=== PATIENT | female | born 1945 | race Caucasian/White ===

== ENCOUNTER 2020-02-06 05:36 | Day surgery (SDC) | payer MEDICARE, BC ==
[2020-01-30 15:32] LABS: EOSINOPHILS # (AUTO) 0.1 X10'3 (0-0.9); LYMPHOCYTES # (AUTO) 2.3 X10'3 (1.1-4.8); MONOCYTES # (AUTO) 0.8 X10'3 (0-0.9); MONOCYTES % (AUTO) 9.1 % (2-12); PRE OP HEMOGLOBIN 14.7 g/dL (12.0-16.0); RED BLOOD COUNT 4.95 X10'6 (4.20-5.60)
[2020-01-30 15:33] LABS: BASOPHILS % (AUTO) 0.4 % (0-1); LYMPHOCYTES % (AUTO) 25.3 % (21-51); MEAN CORPUSCULAR HEMOGLOBIN 29.8 PG (27.0-31.0); MEAN CORPUSCULAR HGB CONC 33.5 g/dL (33.0-36.5); MEAN CORPUSCULAR VOLUME 88.8 FL (78-98); MEAN PLATELET VOLUME 9.3 FL (7.4-10.4); NEUTROPHILS # (AUTO) 5.9 X10'3 (1.8-7.7); NEUTROPHILS % (AUTO) 64.2 % (42-75); PRE OP PLATELET COUNT 224 X10'3 (140-440); RED CELL DISTRIBUTION WIDTH 13.8 % (11.5-14.5)
[2020-01-30 15:48] LABS: ALBUMIN 3.8 G/DL (3.4-5.0); ALBUMIN/GLOBULIN RATIO 0.9 (1.1-1.5); ALKALINE PHOSPHATASE 95 IU/L (46-116); BLOOD UREA NITROGEN 18 MG/DL (7-18); BUN/CREATININE RATIO 20.5 (6.6-38.0); CALCIUM 9.5 MG/DL (8.5-10.1); CHLORIDE 106 MMOL/L (99-107); CREATININE 0.88 MG/DL (0.40-0.90); PRE OP ALT 26 U/L (30-65); PRE OP ANION GAP 10 (8-16); PRE OP AST 25 U/L (10-37); PRE OP BILIRUB, TOTAL 0.5 MG/DL (0.0-1.0); PRE OP GLUCOSE 80 MG/DL (70-104); PRE OP POTASSIUM 3.7 MMOL/L (3.4-5.1); PRE OP SODIUM 145 MMOL/L (135-145); eGFR 63 ML/MIN
[~2020-02-06] VITALS: Ht 162.6 cm; Wt 90.0 kg
[~2020-02-06 05:36] MED LIST: DOCUMENT DATE & TIME OF BETA-BLOCKER PO ONE; famotidine 20mg tablet PO ONE; ringers solution, lacted 1,000 ML IV SCH; vancomycin 1,500 MG in NS 300ml IV soln IV ONE
[2020-02-06 05:45] VITALS: BP 109/54
[2020-02-06] MEDS ORDERED: ASPI81TA52 PO (06:03)
[2020-02-06] MEDS ORDERED: BUPR300T53 PO (06:03)
[2020-02-06] MEDS ORDERED: HCTZ25T PO (06:03)
[2020-02-06] MEDS ORDERED: LEVO88TA2 PO (06:03)
[2020-02-06] MEDS ORDERED: ATOR10TA87 PO (06:03)
[2020-02-06] MEDS ORDERED: QUIN20TA18 PO (06:03)
[2020-02-06] MEDS ORDERED: ATEN25TA PO (06:03)
[2020-02-06] MEDS ORDERED: LIDOcaine 1% (10mg/ml) 2ml vial ONE (06:10)
[2020-02-06] MEDS ORDERED: BUPIVAcaine/PF 2.5mg/ml (0.25%) 10ml vial ONE (06:32)
[2020-02-06] MEDS ORDERED: midazolam 2 mg/2 ml injection ONE (07:54)
[2020-02-06] MEDS ORDERED: fentaNYL/PF 50MCG/1 ML 2ML syringe ONE (07:54)
[2020-02-06] MEDS ORDERED: LIDOcaine 0.5% (5mg/ml) 50ml vial ONE (07:56)
[2020-02-06] MEDS ORDERED: ringers solution, lacted 1,000 ML IV SCH (08:03)
[2020-02-06] MEDS ORDERED: morphine 2 MG/ML inj. syringe IV PRN (08:05)
[2020-02-06] MEDS ORDERED: morphine 4 MG/ML inj SYRINge IV PRN (08:05)
[2020-02-06] MEDS ORDERED: meperidine/PF 25mg/ml syringe IV PRN ×3 (08:05)
[2020-02-06] MEDS ORDERED: ondansetron/PF 4mg/2ml inj IV PRN (08:05)
[2020-02-06] MEDS ORDERED: proCHLORperazine 10 MG/2 ml inj IV PRN (08:05)
[2020-02-06] MEDS ORDERED: propofol inj 20 ML IV ONE (09:01)
[2020-02-06 09:03] VITALS: BP 99/37
--- NOTE | 2020-02-06 09:03 | NUR ---
Received from OR via [facility], accompanied by Anesthesiologist DR CAI and report given by Anesthesiologist. PT AWAKE, DENIES PAIN, RIGHT HAND W/BIAS DRSG COVERING INCISION/DRSG CDI, FINGERS PWD, WHIZZER HAND 1-2 SECONDS. Addendum: 02/06/20 at 0915 by Millie Dickson RN Amended: Links added.
[2020-02-06 09:13] VITALS: BP 110/57
[2020-02-06 09:23] VITALS: BP 115/57
[2020-02-06 09:33] VITALS: BP 121/63
--- NOTE | 2020-02-06 09:43 | NUR ---
D/C INSTRUCTIONS GIVEN AND GONE OVER W/PT WHO VERBALIZED UNDERSTANDING, PT D/CD TO HOME VIA W/C TO PRIVATE VEHICLE W/O INCIDENT. Addendum: 02/06/20 at 0956 by Millie Dickson RN Amended: Links added.
== END 2020-02-06 09:43 | disposition home or self-care (01) ==
LOC: PAS 05:36
PROVIDERS: ATTEND Orthopaedic Surgery Hand Surgery
DX: G56.01 Carpal tunnel syndrome, right upper limb (principal); E03.9 Hypothyroidism, unspecified; I10 Essential (primary) hypertension; E78.00 Pure hypercholesterolemia, unspecified; F41.9 Anxiety disorder, unspecified; M19.90 Unspecified osteoarthritis, unspecified site; Z88.5 Allergy status to narcotic agent; Z88.0 Allergy status to penicillin; Z79.82 Long term (current) use of aspirin; Z79.899 Other long term (current) drug therapy; Z96.643 Presence of artificial hip joint, bilateral; Z87.891 Personal history of nicotine dependence; Z96.651 Presence of right artificial knee joint; Z98.890 Other specified postprocedural states; Z72.89 Other problems related to lifestyle; Z90.710 Acquired absence of both cervix and uterus
CPT/HCPCS: 36415; 64721; 80053; 82948; 85025; J2001; J2250; J2704; J3010; J3370; J3490; J7040; U0003; A4215; J7120

== ENCOUNTER 2021-01-24 07:46 | Day surgery (SDC) | payer MEDICARE, BC ==
[~2021-01-24] VITALS: Ht 162.6 cm; Wt 86.2 kg
[2021-01-24] VITALS (7 sets, daily range): BP systolic 108–125; BP diastolic 49–73
[~2021-01-24 07:46] MED LIST changes: +ASPI81TA52 PO; +ATEN25TA PO; +ATOR10TA87 PO; +BUPR300T53 PO; -DOCUMENT DATE & TIME OF BETA-BLOCKER PO ONE; +HYDR25TA5 PO; +LEVO88TA2 PO; +QUIN20TA18 PO; -famotidine 20mg tablet PO ONE; -ringers solution, lacted 1,000 ML IV SCH; -vancomycin 1,500 MG in NS 300ml IV soln IV ONE
[2021-01-24] MEDS ORDERED: CLINDAMYCIN/D5W 900mg/50ml 50 ML IV ONE (08:20)
[2021-01-24 08:44] LABS: BASOPHILS % (AUTO) 0.3 % (0-1); EOSINOPHILS # (AUTO) 0.1 X10'3 (0-0.9); HEMATOCRIT 40.6 % (35.0-45.0); HEMOGLOBIN 13.4 g/dl (12.0-16.0); LYMPHOCYTES # (AUTO) 1.5 X10'3 (1.1-4.8); LYMPHOCYTES % (AUTO) 24.1 % (21-51); MEAN CORPUSCULAR HEMOGLOBIN 30.9 PG (27.0-31.0); MEAN CORPUSCULAR HGB CONC 33.1 g/dL (33.0-36.5); MEAN CORPUSCULAR VOLUME 93.3 FL (78-98); MEAN PLATELET VOLUME 8.9 FL (7.4-10.4); MONOCYTES # (AUTO) 0.5 X10'3 (0-0.9); MONOCYTES % (AUTO) 8.2 % (2-12); NEUTROPHILS % (AUTO) 66.4 % (42-75); PLATELET COUNT 195 X10'3 (140-440); RED BLOOD COUNT 4.35 X10'6 (4.20-5.60); RED CELL DISTRIBUTION WIDTH 13.5 % (11.5-14.5); WHITE BLOOD COUNT 6.1 X10'3 (4.5-11.0)
[2021-01-24] MEDS ORDERED: midazolam 1 mg/ML 2ml injection ONE ×4 (08:53→09:53)
[2021-01-24] MEDS ORDERED: LIDOCAINE 2% w/EPI 1:100:000 30mL injection MDV**cath lab 1 only ONE (08:53)
[2021-01-24] MEDS ORDERED: fentaNYL/PF 50MCG/1 ML 2ML syringe ONE ×3 (08:53→09:53)
[2021-01-24] MEDS ORDERED: clindamycin phosphate 150mg/ml inj. ONE (08:53)
[2021-01-24 09:16] LABS: ALBUMIN 3.7 G/DL (3.4-5.0); BLOOD UREA NITROGEN 15 MG/DL (7-18); BUN/CREATININE RATIO 18.8 (6.6-38.0); CALCIUM 9.2 MG/DL (8.5-10.1); CHLORIDE 106 MMOL/L (99-107); GLUCOSE 93 MG/DL (70-104); MAGNESIUM 2.3 MG/DL (1.5-2.4); POTASSIUM 3.6 MMOL/L (3.5-5.1); TOTAL CARBON DIOXIDE 26.9 MMOL/L (24-32); eGFR 70 ML/MIN
[2021-01-24 09:33] LABS: ANION GAP 9 (8-16); SODIUM 142 MMOL/L (135-145)
[2021-01-24] MEDS ORDERED: LIDOcaine 1% (10mg/ml)w/preservative injection 20ml MDV ONE (09:53)
[2021-01-24] MEDS ORDERED: iohexol 350 MG/ML 50ML vial IV ONE (09:54)
[2021-01-24] MEDS ORDERED: nitroGLYCERIN-Tridil 50MG/D5W 250 ML IV ONE (09:54)
[2021-01-24] MEDS ORDERED: iohexol 350MG/ML 100ml bottle IV ONE (09:54)
--- NOTE | 2021-01-24 10:45 | NUR ---
Pt in room, NS running as ordered. Pt ordered antibiotics administered while in [employer] laboratory [employer], during procedure. Pt returned with vancomycin continuing to run. Administered as ordered. Will continue to monitor.
[2021-01-24] MEDS ORDERED: ketorolac tromethamine 15mg/ml inj. IV ONE (11:15)
[2021-01-24] MEDS ORDERED: normal saline 1000ml 1,000 ML IV SCH (11:15)
== END 2021-01-24 13:10 | disposition home or self-care (01) ==
LOC: SSTAY O 07:46
PROVIDERS: ATTEND Internal Medicine Cardiovascular Disease
DX: I49.5 Sick sinus syndrome (principal); Z45.09 Encounter for adjustment and management of other cardiac device; I10 Essential (primary) hypertension; E78.5 Hyperlipidemia, unspecified; E03.9 Hypothyroidism, unspecified; F32.9 Major depressive disorder, single episode, unspecified; Z86.711 Personal history of pulmonary embolism; Z98.890 Other specified postprocedural states; Z90.710 Acquired absence of both cervix and uterus; Z96.643 Presence of artificial hip joint, bilateral; Z98.49 Cataract extraction status, unspecified eye; Z96.651 Presence of right artificial knee joint; Z79.899 Other long term (current) drug therapy; Z79.82 Long term (current) use of aspirin; Z87.891 Personal history of nicotine dependence
CPT/HCPCS: 33208; 33286; 36415; 71045; 80048; 83735; 85025; 85610; 93005; 99152; 99153; C1785; C1894; C1898; J1644; J2001; J2250; J3010; J3490; Q9967; A4565; A4620; A6258

== ENCOUNTER 2024-02-04 23:13 | Emergency (ER) | payer MEDICARE, BC ==
[~2024-02-04 23:13] MED LIST changes: -QUIN20TA18 PO; +QUIN20TA39 PO
[2024-02-05 00:33] VITALS: TEMP 98.7
[2024-02-05 01:39] VITALS: BP 145/77; PULSE 77; RESP 16; O2SAT 99
== END 2024-02-05 01:38 | disposition home or self-care (01) ==
LOC: ER 23:13
DX: T17.828A Food in other parts of respiratory tract causing other injury, initial encounter (principal); Z88.0 Allergy status to penicillin; Z88.8 Allergy status to other drugs, medicaments and biological substances; Z79.899 Other long term (current) drug therapy; Z79.82 Long term (current) use of aspirin; W44.F3XA Food entering into or through a natural orifice, initial encounter; Y93.89 Activity, other specified; Y92.89 Other specified places as the place of occurrence of the external cause; Y99.8 Other external cause status
CPT/HCPCS: 99281; 99283